=== PATIENT | male | born 1975 ===

== ENCOUNTER 2016-08-18 16:35 | Emergency (ER) | payer MEDICAID ==
--- NOTE | 2016-08-18 16:55 | EDPHY ---
H & P Source: Patient Exam Limitations: No limitations - Family History Significant Family History: No pertinent family hx - Social History Smoking Status: Never smoked Time Seen by Provider: 08/18/16 16:38 HPI/ROS: CHIEF COMPLAINT: Bilateral wrist [id number] HISTORY OF PRESENT ILLNESS: The patient is brought in by paramedics with bilateral wrist lacerations which were self-inflicted prior to arrival. The patient is somewhat despondent upon arrival. He does report symptoms of depression. He reports he is uncertain why he cut himself. The patient does report a longstanding history of depression but denies prior suicide ideation or attempts. The patient is on a number of psychiatric medications. He denies taking any medications in excess. The patient denies any recent acute medical complaints such as fever, cough, congestion or history of trauma. Additional history is obtained from the police. The patient reportedly has a warrant out for his arrest for alleged domestic assault. He reportedly showed up at the alf with a empty vodka bottle in his hand which he broke and proceeded to used to cut his wrist. The patient is currently under arrest by the police department. REVIEW OF SYSTEMS: A comprehensive 10 point review of systems is otherwise negative aside from elements mentioned in the history of present illness. (Abhi Hernandez) - Medical/Surgical History PMH: Past medical history: Depression (Abhi Hernandez) - Physical Exam Exam: General Appearance: Obese male, tearful, cooperative Eyes: Pupils equal and round no pallor or injection ENT, Mouth: Mucous membranes moist Respiratory: There are no retractions, lungs are clear to auscultation Cardiovascular: Regular rate and rhythm Gastrointestinal: Abdomen is soft and nontender, no masses, bowel sounds normal Neurological: A&O, normal motor function, normal sensory exam, normal cranial nerves Skin: Multiple superficial lacerations noted to the bilateral wrists Musculoskeletal: Neck is supple nontender Extremities: symmetrical, full range of motion no evidence of tendon or neurovascular deficit appreciated Psychiatric: Patient is oriented X 3, there is no agitation, does endorse symptoms of depression (Abhi Hernandez) Constitutional: Initial Vital Signs Temperature (C) 36.9 C 08/18/16 16:35 Heart Rate 89 08/18/16 16:35 Respiratory Rate 18 08/18/16 16:35 Blood Pressure 131/92 H 08/18/16 16:35 O2 Sat (%) 97 08/18/16 16:35 O2 Delivery Mode Room Air Allergies/Adverse Reactions: Penicillins Allergy (Verified 08/18/16 16:49) Home Medications: Medication Instructions Recorded Adderall 10 MG (*) 08/18/16 Atenolol 08/18/16 Effexor 08/18/16 Pantoprazole Sodium 08/18/16 Xanax 08/18/16 Medical Decision Making Procedures: Procedure: Laceration repair. I was requested by Dr. Hernandez to perform wound closure I explained the indications, risks and benefits for both laceration repair and anesthetic administration. Verbal consent was obtained from the patient and parent. The laceration on the bilateral volar wrists were anesthetized using 0.5% bupivicaine with epinephrine . After anesthetic administered the patient was observed for a period of time and had no apparent adverse effects. The wound was cleaned, prepped, draped in normal sterile fashion and explored to its base. No foreign body seen, no foreign bodies palpated. There were no deep structures involved. No tendon injury was identified. The 3 discrete lacerations on left volar wrist were closed with running 5 0 Prolene sutures. The 4 discrete lacerations on the right volar wrist closed with running 5 0 Prolene suture. Patient tolerated procedure well. Wound closure was complex. ( Uri Sage) ED Course/Re-evaluation: The patient presents to the ED with self-inflicted lacerations to his upper extremities. The patient was noted to be neurologically intact. The patient was vague about his intent. He denies suicidal ideation currently. He does report depression surrounding his recent domestic problems. The patient is currently under arrest. The patient will be discharged under the care of the police where he will be incarcerated. The patient will undergo psychiatric evaluation at [facility]. The patient should have suture removal performed in 10 days. The patient has no evidence of an obvious toxidrome or other significant metabolic derangement aside from mild alcohol intoxication. The patient's lacerations were repaired under my supervision by the physician account management assistant Arely Sage. (Abhi Hernandez) Differential Diagnosis: Differential diagnosis considered includes laceration, neurovascular injury, suicidal ideation, depression, overdose, alcohol intoxication (Abhi Hernandez) - Data Points Laboratory Results: Laboratory Results 08/18/16 Unknown 08/18/16 Unknown 08/18/16 08/18/16 Unknown Unknown WBC 9.02 10^3/uL 10^3/uL (3.80-9.50) RBC 5.50 10^6/uL 10^6/uL (4.40-6.38) Hgb 16.5 g/dL g/dL (13.7-17.5) Hct 46.7 % % (40.0-51.0) MCV 84.9 fL fL (81.5-99.8) MCH 30.0 pg pg (27.9-34.1) MCHC 35.3 g/dL g/dL (32.4-36.7) RDW 14.0 % % (11.5-15.2) Plt Count 352 10^3/uL 10^3/uL (150-400) MPV 9.8 fL fL (8.7-11.7) Neut % (Auto) 55.4 % % (39.3-74.2) Lymph % (Auto) 31.5 % % (15.0-45.0) [place] % (Auto) 11.0 % % (4.5-13.0) Eos % (Auto) 0.9 % % (0.6-7.6) Baso % (Auto) 0.9 % % (0.3-1.7) Nucleat RBC Rel Count 0.0 % % (0.0-0.2) Absolute Neuts (auto) 5.00 10^3/uL 10^3/uL (1.70-6.50) Absolute Lymphs (auto) 2.84 10^3/uL 10^3/uL (1.00-3.00) Absolute Monos (auto) 0.99 10^3/uL H 10^3/uL (0.30-0.80) Absolute Eos (auto) 0.08 10^3/uL 10^3/uL (0.03-0.40) Absolute Basos (auto) 0.08 10^3/uL 10^3/uL (0.02-0.10) Absolute Nucleated RBC 0.00 10^3/uL 10^3/uL (0-0.01) Immature Gran % 0.3 % % (0.0-1.1) Immature Gran # 0.03 10^3/uL 10^3/uL (0.00-0.10) Sodium 143 mEq/L mEq/L (134-144) Potassium 3.9 mEq/L mEq/L (3.5-5.2) Chloride 107 mEq/L mEq/L (97-110) Carbon Dioxide 18 mEq/l L mEq/l (22-31) Anion Gap 18 mEq/L H mEq/L (8-16) BUN 18 mg/dL mg/dL (7-23) Creatinine 1.2 mg/dL mg/dL (0.7-1.3) Estimated GFR > 60 Glucose 124 mg/dL H mg/dL (70-100) Calcium 9.5 mg/dL mg/dL (8.5-10.4) Acetaminophen < 10 mcg/mL L mcg/mL (10.0-30.0) Ethyl Alcohol 131 mg/dL H mg/dL (0-10) Departure - Departure Disposition: Home, Routine, Self-Care Clinical Impression: Laceration of wrist, left, Laceration of wrist, right, Alcohol intoxication, Depression Condition: Fair Instructions: Laceration (ED) Additional Instructions: 1. Return to the ED in 10 days for suture removal. 2. Return to the emergency department for suicidal thoughts, worsening depression or other concerns.
[2016-08-18 17:06] LABS: % IMMATURE GRANULYOCYTES 0.3 % (0.0-1.1); ABSOLUTE IMMATURE GRANULOCYTES 0.03 10^3/uL (0.00-0.10); ADD DIFF? NO; ADD MORPH? NO; ADD SCAN? NO; ATYPICAL LYMPHOCYTE FLAG 20 (0-99); FRAGMENT RBC FLAG 0 (0-99); HEMATOCRIT 46.7 % (40.0-51.0); HEMOGLOBIN 16.5 g/dL (13.7-17.5); LEFT SHIFT FLG 10 (0-99); LIPEMIA HEMOLYSIS FLAG 90 (0-99); MEAN CELL HEMOGLOBIN CONCENTR. 35.3 g/dL (32.4-36.7); MEAN CELL VOLUME 84.9 fL (81.5-99.8); MEAN PLATELET VOLUME 9.8 fL (8.7-11.7); PLATELET CLUMPS FLAG 0 (0-99); PLATELET COUNT 352 10^3/uL (150-400)
[2016-08-18 17:16] LABS: ANION GAP 18 mEq/L (8-16); CALCIUM 9.5 mg/dL (8.5-10.4); CARBON DIOXIDE 18 mEq/l (22-31); CHLORIDE 107 mEq/L (97-110); CREATININE 1.2 mg/dL (0.7-1.3); ETHANOL SERUM 131 mg/dL (0-10); GLOMERULAR FILTRATION RATE > 60; GLUCOSE 124 mg/dL (70-100); POTASSIUM 3.9 mEq/L (3.5-5.2); SODIUM 143 mEq/L (134-144)
[2016-08-18 18:22] VITALS: BP 111/84; PULSE 83; RESP 16; TEMP 97.7; O2SAT 92
== END 2016-08-18 18:40 | disposition home or self-care (01) ==
LOC: EDUNIT#
PROC: 0HQDXZZ Repair Right Lower Arm Skin, External Approach (ICD-10-PCS; principal; 2016-08-18)
PROC: 0HQEXZZ Repair Left Lower Arm Skin, External Approach (ICD-10-PCS; principal; 2016-08-18)
DX: S61.512A Laceration without foreign body of left wrist, initial encounter (principal); S61.511A Laceration without foreign body of right wrist, initial encounter; F10.129 Alcohol abuse with intoxication, unspecified; F32.9 Major depressive disorder, single episode, unspecified; X78.9XXA Intentional self-harm by unspecified sharp object, initial encounter
CPT/HCPCS: G0480